=== PATIENT | female | born 1990 | race Hispanic/Latino ===

== ENCOUNTER 2022-08-01 06:50 | Outpatient (CLI) | payer BC, SELFPAY ==
[2022-08-01] VITALS (24 sets, daily range): BP systolic 111–129; BP diastolic 66–76; PULSE 110–121; RESP 16; TEMP 36.9; O2SAT 97–100; BMI 40.2
[2022-08-01] MEDS: Lactated Ringers 1,000 ML 999 ML IV (06:55)
--- NOTE | 2022-08-01 07:25 | OB.TRI.NOTE ---
[facility] - [facility] Date of Service: 08/01/22 HPI Narrative AMBER EL, is a 32 F @ 23 WEEKS who presents C/O BLEEDING - 1/2 CUP BRIGHT RED VAGINAL BLEEDING. pt reports no pain, no cramping, no leaking fluid other then blood. pt reports good movement. pt reports is know previa. pt gets care from Dr. Panda at [place]. pt reports no intercourse, straining or heavy lifting prior to bleeding. pt reports prior cs Physical Exam Narrative Gen: female in NAD Abd; soft, gravid, non tender to palpation. Limited Bedside ultrasound: VITALY appears WNL. Fetus Breech. +FM, +FHR Speculum Exam: Large amount of Bright red blood in vault- cervix appears closed- active bleeding noted Const alert and oriented x3 NST FHR Rate Baby A Baseline: 130s Assessment & Plan (1) Placenta previa antepartum in second trimester: (2) Vaginal bleeding in : (3) 23 weeks gestation of : (4) Previous delivery affecting : (5) with care elsewhere: PLAN: Plan @ 23 weeks- previa, active bleeding 1) active bleeding, well being established- plan to transfer [facility] [place] 2) pt reports rh + status 3) dr otero in process of contacting [facility] for acceptance at facility 4) Pt was counseled on plan of care- verbalized understanding. 5) Labs ordered and drawn- including fibrinogen, pt, ptt, cbc, t&S
[2022-08-01 07:52] LABS: Absolute Lymphocyte Count 5.24 X10^3/uL (0.83-4.51); Absolute Neutrophil Count 6.6 X10^3/uL (2.0-7.7); Basophil# 0.02 X10^3/uL; Basophil% 0.2 % (0-1); Eosinophil# 0.09 X10^3/uL; Eosinophils% 0.7 % (0-5); Hematocrit 36.1 % (37-47); Hemoglobin 11.6 g/dL (12.0-15.0); Lymphocyte # 5.24 X10^3/ul (0.83-4.51); Mean Corp Hgb Conc 32.1 g/dL (32-36); Mean Corpuscular Hgb 25.6 pg (27.0-32.0); Mean Corpuscular Volume 79.7 fL (81-99); Mean Platelet Vol. 9.7 fl (6.2-12.0); Monocyte# 0.75 X10^3/uL; Monocyte% 5.9 % (0-10); NRBC Flagged by Analyzer 0 % (0-5); Neutrophil # 6.61 X10^3/uL (2.7-7.7); Neutrophil % 51.6 % (47-70); POSITIVE DIFFERENTIAL YES; Platelet Count 436 K/mm3 (150-450); RBC Distribution Width CV 15.2 % (11.6-14.6); RBC Distribution Width SD 43.8 fl (35.1-43.9); Red Blood Count 4.53 M/mm3 (4.2-5.4); White Blood Count 12.8 K/mm3 (4.4-11.0)
[2022-08-01 07:54] LABS: Differential Indicated SCAN CRITERIA MET
[2022-08-01] MEDS: Betamethasone/Betamethasone 30 MG/5 ML Vial 12 MG IM (08:26)
[2022-08-01] MEDS: Lactated Ringers 1,000 ML 15 ML IV (08:27)
[2022-08-01] MEDS: Magnesium Sulfate 4gm/100mL 4 GM/100 ML IV.SOLN. IV (08:27)
[2022-08-01 08:34] LABS: International Normalized Ratio 1.1; Partial Thromboplast Time 26.5 Seconds (24.1-36.2); Prothrombin Time (Protime)PT. 13.9 SECONDS (11.7-14.9)
[2022-08-01 08:35] LABS: Fibrinogen 685 mg/dl (203-444)
[2022-08-01] MEDS: Magnesium Sulfate 4gm/100mL 2 GM/50 ML IV.SOLN. IV (08:44)
[2022-08-01] MEDS: Magnesium Sulfate 20 GM/500 ML BAG IV (08:59)
== END 2022-08-01 10:00 | disposition home or self-care (01) ==
LOC: WPOUT 07:20 → WP 07:21
PROVIDERS: Obstetrics & Gynecology; PCP Student in an Organized Health Care Education/Training Program; Referring Provider Obstetrics & Gynecology; Visit Provider Obstetrics & Gynecology
DX: O44.12 Complete placenta previa with hemorrhage, second trimester (principal); Z79.899 Other long term (current) drug therapy; Z3A.23 23 weeks gestation of pregnancy
CPT/HCPCS: 96365; 96366; 96367 ×2; 96372; 36415; 59025; 59050; 76815; 85025; 85384; 85610; 85730; 86850; 86900; 86901; J7120; J0702